=== PATIENT | male | born 1990 | race Hispanic/Latino ===

== ENCOUNTER 2022-05-06 08:40 | Emergency (ER) | payer SELFPAY ==
[~2022-05-06] VITALS: Ht 172.7 cm; Wt 82.0 kg
[2022-05-06 08:45] VITALS: BP 124/100; BP 145/93
[2022-05-06 09:00] VITALS: BP 142/97
[2022-05-06 09:31] VITALS: BP 159/82
[2022-05-06 10:46] VITALS: BP 159/82
[2022-05-06] MEDS ORDERED: AMOX/K CLAV875 M1 PO (10:54)
== END 2022-05-06 11:07 | disposition home or self-care (01) | DRG 153 ==
LOC: ED 08:40
DX: J32.0 Chronic maxillary sinusitis (principal)